=== PATIENT | male | born 1955 | race Caucasian/White ===

== ENCOUNTER 2021-05-08 06:14 | Day surgery (SDC) | payer MEDICARE, BC, OTHER ==
[~2021-05-08] VITALS: Ht 182.9 cm; Wt 101.2 kg
[~2021-05-08 06:14] MED LIST: CIPROFLOXACIN 400 MG in IV 1 EA IV ONE; DILT1CAP PO; LIDOCAINE 1% MDV 20ML VIAL SQ PRN; LR 1,000 ML IV ONE; METO1TAB7 PO; TAMS1CAP17 PO; XARE20TA PO
[2021-05-08] MEDS ORDERED: propofoL 200 MG/20 ML VIAL As Ordered ONE (07:19)
[2021-05-08] MEDS ORDERED: ONDANSETRON 4MG/2ML VIAL As Ordered ONE (07:19)
[2021-05-08] MEDS ORDERED: fentaNYL 100 MCG/2 ML INJECTION (J3010) As Ordered ONE (07:19)
[2021-05-08] MEDS ORDERED: LIDOCAINE 2% 100MG/5ML SDV (FOR ANES.) As Ordered ONE (07:19)
[2021-05-08] MEDS ORDERED: dexameTHASONE 4 MG/ML 1ML VIAL (J1100 PER 1MG) As Ordered ONE (07:19)
[2021-05-08] MEDS ORDERED: KETOROLAC 60MG 2ML VIAL As Ordered ONE (07:19)
[2021-05-08] MEDS ORDERED: MIDAZOLAM INJ 2MG/2ML VIAL (J2250 PER 1MG) As Ordered ONE (07:20)
[2021-05-08] MEDS ORDERED: CONRAY-60 60% 50ML VIAL (Q9961) As Ordered ONE (07:22)
[2021-05-08] MEDS ORDERED: LIDOCAINE 5% OINT 30GM TUBE As Ordered ONE (07:26)
--- NOTE | 2021-05-08 07:31 | ROOPDOC ---
[facility] Report Of Operation Report of Operation DATE OF PROCEDURE: 05/08/21 PREPROCEDURE DIAGNOSES: [bladder stone]. POSTPROCEDURE DIAGNOSES: [same]. PROCEDURE PERFORMED: [cystolitholapaxy with laser, bladder irrigation]. SURGEON: [Gibran], CEMENT PATCHER: [none], MD ANESTHESIA: [general ]. ESTIMATED BLOOD LOSS: Approximately [0] mL. COMPLICATIONS: [none]. REMARKS: [66yo wm with bph and bladder stone. Recent cysto demonstrated a bladder stone. Surgery arranged to remove it. No guarantees. Risks discussed including infection, pain, bleeding, scarring, failure of surgery, need for more surgery, injury to gu tract, retention and others]. FINDINGS: SPECIMENS REMOVED: [bladder stone] PROCEDURE NOTE: . DESCRIPTION OF PROCEDURE: [Met with pt in preop area and surgery again discussed. Pt brought to OR room. Surgery done under coverage of iv antitbiotic. Dorsal litho position. Well padded. Prep'd and draped in sterile fashion. General anesthesia secured. Time out performed. Cystoscopy performed with rigid scope. Bladder stone found. Laser lithotripsy performed. Stone fragmented well and bladder irrigated free of fragments. Bladder emptied and scope removed. Pt tolerated all well and left room in satisfactory condition. Bph noted. Difficult to get up and over median lobe to look at floor.]. UDAY BUNN MD May 08, 2021 07:31
[2021-05-08] MEDS ORDERED: BACT800T5 PO (08:14)
[2021-05-08] MEDS ORDERED: MEPERIDINE INJ 25 MG/ML VIAL (J2175) IV PRN (08:25)
[2021-05-08] MEDS ORDERED: LR 1,000 ML IV SCH ×2 (08:25→09:10)
[2021-05-08] MEDS ORDERED: fentaNYL 100 MCG/2 ML INJECTION (J3010) IV PRN (08:25)
[2021-05-08] MEDS ORDERED: ONDANSETRON 4MG/2ML VIAL IV PRN (08:25)
[2021-05-08] MEDS ORDERED: oxyCODONE 5MG TAB PO PRN (08:25)
[2021-05-08 09:45] VITALS: BP 119/69
== END 2021-05-08 09:45 | disposition home or self-care (01) ==
LOC: M SDC 06:14
PROVIDERS: ATTEND Urology
DX: N21.0 Calculus in bladder (principal); I48.91 Unspecified atrial fibrillation; Z79.899 Other long term (current) drug therapy
CPT/HCPCS: 52317; 82365; 88300; J0744; J1100; J1885; J2250; J2405; J3010